=== PATIENT | male | born 1960 | race Caucasian/White ===

== ENCOUNTER 2022-04-11 12:21 | Emergency (ER) | payer BC ==
[2022-04-11] MEDS ORDERED: Diphtheria,Pertussis(Acell),Tetanus Vaccine 0.5 ML Syringe IM ONE (12:38)
[2022-04-11] MEDS ORDERED: Lidocaine 1% 5 ML VIAL INJECT ONE (12:38)
[2022-04-11] MEDS ORDERED: ceFAZolin 1 GM Vial IM ONE (14:07)
== END 2022-04-11 14:50 | disposition home or self-care (01) ==
LOC: MW.ED 12:21
DX: S66.325A Laceration of extensor muscle, fascia and tendon of left ring finger at wrist and hand level, initial encounter (principal); I48.91 Unspecified atrial fibrillation; E11.9 Type 2 diabetes mellitus without complications; Z79.899 Other long term (current) drug therapy; Z23 Encounter for immunization; Z79.01 Long term (current) use of anticoagulants; Z79.4 Long term (current) use of insulin; W29.3XXA Contact with powered garden and outdoor hand tools and machinery, initial encounter
CPT/HCPCS: 12002; 73140; 90471; 90715; 96372; 99283; J0690